=== PATIENT | male | born 1965 | race Caucasian/White ===

== ENCOUNTER 2018-11-12 18:13 | Inpatient (IN) | payer MEDICARE, OTHER ==
[~2018-11-12] VITALS: Ht 170.2 cm; Wt 65.8 kg
[2018-11-12] MEDS ORDERED: HYDROCODONE/ACETAMINOPHEN 5/325MG TABLET PO ONE (18:45)
[2018-11-12 19:12] LABS: HEMATOCRIT. 30.6 % (42.0-52.0); HEMOGLOBIN. 10.2 g/dL (14.0-18.0); MEAN CORPUSCULAR HEMOGLOBIN 31.5 pg (28.0-32.0); MEAN CORPUSCULAR VOLUME 94.7 fL (80.0-94.0); MEAN PLATELET VOLUME 10.2 fl (7.4-10.4); PLATELET 212 x1000/uL (130-400); RED BLOOD CELL COUNT 3.24 mill/uL (4.7-6.1); RED CELL DISTRIBUTION WIDTH 15.1 % (11.6-14.6)
[2018-11-12 19:19] LABS: INR 1.2; PROTHROMBIN TIME 11.9 sec (9.6-11.0)
[2018-11-12 19:37] LABS: PLATELET ESTIMATE NORMAL
[2018-11-12] MEDS ORDERED: VANCOMYCIN 1 G PREMIX 200 ML IV ONE (19:45)
[2018-11-12] MEDS ORDERED: SODIUM CHLORIDE 0.9% 500 ML IV ONE (19:45)
[2018-11-12] MEDS ORDERED: PIPERACILLIN/TAZ 3.375G PREMIX 50 ML IV ONE (19:45)
[2018-11-12 19:47] LABS: CHLORIDE 93 mEq/L (98-107)
[2018-11-12] MEDS ORDERED: ASPIRIN 325MG TABLET PO ONE (20:15)
[2018-11-12] MEDS ORDERED: ENOXAPARIN 80MG/0.8ML SYR SUBCUT ONE (20:15)
[2018-11-12] MEDS ORDERED: DEXTROSE 50% WATER 50ML SYRINGE IV ONE (20:30)
[2018-11-12] MEDS ORDERED: CALCIUM GLUCONATE 1,000 MG in DEXT 5% WATER 100 ML IV ONE (20:30)
[2018-11-12] MEDS ORDERED: INSULIN REGULAR (HUMULIN R) 300UNITS/3ML IV ONE (20:30)
[2018-11-12] MEDS ORDERED: ONDANSETRON HCL 4MG/2ML INJ IV PRN (22:00)
[2018-11-12] MEDS ORDERED: LORAZEPAM 2MG/ML CPJ IV PRN (22:00)
[2018-11-12] MEDS ORDERED: IPRATROPIUM/ALBUTEROL 0.5-3(2.5)MG/3ML NEB INH PRN (22:00)
[2018-11-13] MEDS ORDERED: INSULIN REGULAR (HUMULIN R) 300UNITS/3ML IV SCH ×2 (03:00→03:45)
[2018-11-13] MEDS ORDERED: DEXTROSE 50% WATER 50ML SYRINGE IV SCH (03:00)
[2018-11-13] MEDS ORDERED: CALCIUM GLUCONATE 1,000 MG in DEXT 5% WATER 100 ML IV SCH (03:00)
[2018-11-13] MEDS ORDERED: CEFTRIAXONE 1 G PREMIX 50 ML IV SCH ×2 (03:00→06:00)
[2018-11-13] MEDS ORDERED: AZITHROMYCIN 500 MG in DEXT 5% WATER 250 ML IV SCH (04:00)
[2018-11-13 04:45] VITALS: BP 120/68
[2018-11-13] MEDS: HYDROCODONE/ACETAMINOPHEN 5/325MG TABLET PO PRN (06:02)
[2018-11-13 06:34] VITALS: BP 120/68
[2018-11-13 08:57] VITALS: BP 105/50
[2018-11-13] MEDS: ENOXAPARIN 30MG/0.3ML SYR SUBCUT SCH (08:58)
[2018-11-13] MEDS: ASPIRIN 81MG EC TABLET PO SCH (08:58)
[2018-11-13] MEDS: LISINOPRIL 10MG TABLET PO SCH (08:59)
[2018-11-13] MEDS ORDERED: DEXTROSE 50% WATER 50ML SYRINGE IV PRN (11:45)
[2018-11-13] MEDS: CLONIDINE 0.1MG TABLET PO PRN (11:48)
[2018-11-13] MEDS: INSULIN LISPRO 100 UNITS/ML SUBCUT SCH ×3 (12:33→21:00)
[2018-11-13] MEDS: BLOOD SUGAR DIAGNOSTIC STRIP TEST SCH ×3 (12:35→21:40)
[2018-11-13 12:36] VITALS: BP 182/84
[2018-11-13] MEDS ORDERED: DIATR MEGLU/DIATRIZOATE SOLN 30ML PO SCH (15:00)
[2018-11-13 16:06] VITALS: BP 102/51
[2018-11-13] MEDS ORDERED: CEFTAZIDIME PENTAHYDRATE 2 G in DEXT 5% WATER 100 ML IV SCH (17:30)
[2018-11-13] MEDS: CEFTAZIDIME PENTAHYDRATE 1 G in DEXTROSE 5% WATER 50 ML IV SCH (17:45)
[2018-11-13 20:00] VITALS: BP 121/55
[2018-11-14] VITALS (7 sets, daily range): BP systolic 90–190; BP diastolic 47–105
[2018-11-14] MEDS ORDERED: AZITHROMYCIN 500 MG in DEXT 5% WATER 250 ML IV SCH (03:00)
[2018-11-14 06:01] LABS: HEMATOCRIT. 29.5 % (42.0-52.0); MEAN CORPUSCULAR HEMOGLOBIN 32.6 pg (28.0-32.0); MEAN CORPUSCULAR VOLUME 95.8 fL (80.0-94.0); MEAN PLATELET VOLUME 9.8 fl (7.4-10.4); PLATELET 196 x1000/uL (130-400); RED BLOOD CELL COUNT 3.08 mill/uL (4.7-6.1); RED CELL DISTRIBUTION WIDTH 14.9 % (11.6-14.6)
[2018-11-14] MEDS: BLOOD SUGAR DIAGNOSTIC STRIP TEST SCH ×4 (06:47→21:20)
[2018-11-14] MEDS: INSULIN LISPRO 100 UNITS/ML SUBCUT SCH ×4 (07:25→21:00)
[2018-11-14] MEDS ORDERED: MAGNESIUM/ALUMINUM HYDROXIDE/SIMETHICONE 30ML UDC PO PRN (11:45)
[2018-11-14] MEDS ORDERED: DIPHENHYDRAMINE 50MG/ML VIAL IV PRN (11:45)
[2018-11-14] MEDS ORDERED: GUAIFENESIN 200MG/10ML SUGAR FREE UDC PO PRN (11:45)
[2018-11-14] MEDS: CLONIDINE 0.1MG TABLET PO PRN (12:08)
[2018-11-14] MEDS: LISINOPRIL 10MG TABLET PO SCH (12:08)
[2018-11-14] MEDS: ASPIRIN 81MG EC TABLET PO SCH (12:08)
[2018-11-14] MEDS: ENOXAPARIN 30MG/0.3ML SYR SUBCUT SCH (12:10)
[2018-11-14 12:30] LABS: CHLORIDE 96 mEq/L (98-107)
[2018-11-14 12:32] LABS: HEMATOCRIT. 30.5 % (42.0-52.0); HEMOGLOBIN. 10.2 g/dL (14.0-18.0); MEAN CORPUSCULAR HEMOGLOBIN 31.8 pg (28.0-32.0); MEAN CORPUSCULAR VOLUME 95.4 fL (80.0-94.0); MEAN PLATELET VOLUME 9.6 fl (7.4-10.4); PLATELET 243 x1000/uL (130-400); RED CELL DISTRIBUTION WIDTH 14.9 % (11.6-14.6)
[2018-11-14 13:07] LABS: TOTAL IRON BINDING CAPACITY 228 ug/dL (250-450)
[2018-11-14 13:38] LABS: CREATINE KINASE 103 IU/L (39-308)
[2018-11-14] MEDS: LOSARTAN POTASSIUM 50 MG TABLET PO SCH (13:48)
[2018-11-14] MEDS: HYDRALAZINE HCL 50MG TABLET PO SCH ×2 (13:48→21:21)
[2018-11-14] MEDS: CARVEDILOL 6.25 MG TABLET PO SCH ×2 (13:49→23:00)
[2018-11-14 16:52] LABS: PLATELET ESTIMATE NORMAL
[2018-11-14 16:59] LABS: PLATELET ESTIMATE NORMAL
[2018-11-14] MEDS: CEFTAZIDIME PENTAHYDRATE 1 G in DEXTROSE 5% WATER 50 ML IV SCH (17:55)
[2018-11-14] MEDS: FAMOTIDINE 20MG TABLET PO SCH (21:20)
[2018-11-15] VITALS: BP 107/46
[2018-11-15 04:00] VITALS: BP 134/49
[2018-11-15] MEDS: BLOOD SUGAR DIAGNOSTIC STRIP TEST SCH ×4 (06:43→21:54)
[2018-11-15] MEDS: HYDRALAZINE HCL 50MG TABLET PO SCH ×3 (06:43→21:53)
[2018-11-15 06:54] LABS: BASOPHILS % 1.5 % (0.0-2.0); HEMOGLOBIN. 9.3 g/dL (14.0-18.0); LYMPHOCYTES % 14.6 % (20.0-50.0); MEAN CORPUSCULAR HEMOGLOBIN 31.9 pg (28.0-32.0); MEAN PLATELET VOLUME 9.9 fl (7.4-10.4); MONOCYTES % 9.8 % (2.0-8.0); NEUTROPHILS % 72.1 % (40.0-76.0); PLATELET 209 x1000/uL (130-400); RED BLOOD CELL COUNT 2.92 mill/uL (4.7-6.1); RED CELL DISTRIBUTION WIDTH 15.1 % (11.6-14.6)
[2018-11-15] MEDS: INSULIN LISPRO 100 UNITS/ML SUBCUT SCH ×4 (07:50→21:00)
[2018-11-15 07:53] VITALS: BP_SYST 100; BP_SYST 130; BP_DIAS 52
[2018-11-15] MEDS: ENOXAPARIN 30MG/0.3ML SYR SUBCUT SCH (09:00)
[2018-11-15] MEDS: LISINOPRIL 10MG TABLET PO SCH (09:00)
[2018-11-15] MEDS: CARVEDILOL 6.25 MG TABLET PO SCH ×2 (09:00→21:53)
[2018-11-15] MEDS: LOSARTAN POTASSIUM 50 MG TABLET PO SCH (09:00)
[2018-11-15] MEDS: ASPIRIN 81MG EC TABLET PO SCH (09:00)
[2018-11-15 12:00] VITALS: BP 107/58
[2018-11-15 15:50] VITALS: BP 105/59
[2018-11-15] MEDS: CEFTAZIDIME PENTAHYDRATE 1 G in DEXTROSE 5% WATER 50 ML IV SCH (18:32)
[2018-11-15 20:00] VITALS: BP 146/69
[2018-11-15] MEDS: FAMOTIDINE 20MG TABLET PO SCH (21:53)
[2018-11-16] VITALS: BP 110/55
[2018-11-16 04:00] VITALS: BP 108/47
[2018-11-16] MEDS: HYDRALAZINE HCL 50MG TABLET PO SCH ×3 (05:33→22:01)
[2018-11-16] MEDS: BLOOD SUGAR DIAGNOSTIC STRIP TEST SCH ×4 (06:28→21:00)
[2018-11-16] MEDS: INSULIN LISPRO 100 UNITS/ML SUBCUT SCH ×4 (06:30→21:00)
[2018-11-16 06:57] LABS: BASOPHILS % 1.6 % (0.0-2.0); EOSINOPHILS % 2.4 % (0.0-5.0); HEMATOCRIT. 26.6 % (42.0-52.0); HEMOGLOBIN. 9.1 g/dL (14.0-18.0); LYMPHOCYTES % 14.9 % (20.0-50.0); MEAN CORPUSCULAR HEMOGLOBIN 32.4 pg (28.0-32.0); MEAN CORPUSCULAR VOLUME 94.8 fL (80.0-94.0); MEAN PLATELET VOLUME 9.9 fl (7.4-10.4); MONOCYTES % 10.4 % (2.0-8.0); NEUTROPHILS % 70.7 % (40.0-76.0); PLATELET 209 x1000/uL (130-400); RED BLOOD CELL COUNT 2.81 mill/uL (4.7-6.1); RED CELL DISTRIBUTION WIDTH 14.7 % (11.6-14.6)
[2018-11-16 08:00] VITALS: BP 128/63
[2018-11-16] MEDS: CARVEDILOL 6.25 MG TABLET PO SCH ×2 (08:35→22:01)
[2018-11-16] MEDS: ENOXAPARIN 30MG/0.3ML SYR SUBCUT SCH (08:36)
[2018-11-16] MEDS: LISINOPRIL 10MG TABLET PO SCH (08:36)
[2018-11-16] MEDS: ASPIRIN 81MG EC TABLET PO SCH (08:36)
[2018-11-16] MEDS: LOSARTAN POTASSIUM 50 MG TABLET PO SCH (08:36)
[2018-11-16 12:00] VITALS: BP 108/52
[2018-11-16] MEDS: CEFTAZIDIME PENTAHYDRATE 1 G in DEXTROSE 5% WATER 50 ML IV SCH (18:56)
[2018-11-16 20:09] VITALS: BP 150/55
[2018-11-16] MEDS: FAMOTIDINE 20MG TABLET PO SCH (22:00)
[2018-11-17] VITALS (7 sets, daily range): BP systolic 121–162; BP diastolic 55–77
[2018-11-17] MEDS: HYDRALAZINE HCL 50MG TABLET PO SCH ×3 (06:31→22:00)
[2018-11-17] MEDS: BLOOD SUGAR DIAGNOSTIC STRIP TEST SCH ×4 (06:31→21:04)
[2018-11-17] MEDS: INSULIN LISPRO 100 UNITS/ML SUBCUT SCH ×4 (07:50→21:00)
[2018-11-17] MEDS: CARVEDILOL 6.25 MG TABLET PO SCH ×2 (09:00→21:00)
[2018-11-17] MEDS: ENOXAPARIN 30MG/0.3ML SYR SUBCUT SCH (09:00)
[2018-11-17] MEDS: LISINOPRIL 10MG TABLET PO SCH (09:00)
[2018-11-17] MEDS: LOSARTAN POTASSIUM 50 MG TABLET PO SCH (09:00)
[2018-11-17] MEDS ORDERED: LIDOCAINE HCL 1% 20ML VIAL (Pyxis) INJ ONE (10:09)
[2018-11-17] MEDS ORDERED: DIATR MEGLU/DIATRIZOATE SOLN 30ML ONE (10:25)
[2018-11-17] MEDS ORDERED: IOHEXOL-350 100 ML BOTTLE ONE (10:26)
[2018-11-17] MEDS: ASPIRIN 81MG EC TABLET PO SCH (12:08)
[2018-11-17 12:42] LABS: BASOPHILS % 2.4 % (0.0-2.0); EOSINOPHILS % 2.5 % (0.0-5.0); HEMATOCRIT. 30.6 % (42.0-52.0); HEMOGLOBIN. 10.1 g/dL (14.0-18.0); LYMPHOCYTES % 13.1 % (20.0-50.0); MEAN CORPUSCULAR HEMOGLOBIN 31.7 pg (28.0-32.0); MEAN CORPUSCULAR VOLUME 96.2 fL (80.0-94.0); MEAN PLATELET VOLUME 9.8 fl (7.4-10.4); PLATELET 235 x1000/uL (130-400); RED BLOOD CELL COUNT 3.18 mill/uL (4.7-6.1); RED CELL DISTRIBUTION WIDTH 15.4 % (11.6-14.6)
[2018-11-17] MEDS ORDERED: HEPARIN SODIUM 1,000 UNIT/1ML VIAL IV ONE (13:00)
[2018-11-17] MEDS ORDERED: HEPARIN SODIUM 1,000 UNIT/1ML VIAL IV NR (13:15)
[2018-11-17] MEDS: FAMOTIDINE 20MG TABLET PO SCH (21:04)
[2018-11-17] MEDS: HYDROCODONE/ACETAMINOPHEN 5/325MG TABLET PO PRN (21:06)
[2018-11-17] MEDS: CEFTAZIDIME PENTAHYDRATE 1 G in DEXTROSE 5% WATER 50 ML IV SCH (23:11)
[2018-11-18 00:30] VITALS: BP 179/63
[2018-11-18] MEDS: CLONIDINE 0.1MG TABLET PO PRN (01:10)
[2018-11-18 04:00] VITALS: BP 142/78
[2018-11-18] MEDS: HYDRALAZINE HCL 50MG TABLET PO SCH ×3 (05:18→23:53)
[2018-11-18 06:45] LABS: EOSINOPHILS % 4.6 % (0.0-5.0); HEMATOCRIT. 29.2 % (42.0-52.0); HEMOGLOBIN. 9.7 g/dL (14.0-18.0); LYMPHOCYTES % 16.9 % (20.0-50.0); MEAN CORPUSCULAR HEMOGLOBIN 31.6 pg (28.0-32.0); MEAN CORPUSCULAR VOLUME 95.1 fL (80.0-94.0); MEAN PLATELET VOLUME 9.6 fl (7.4-10.4); MONOCYTES % 10.9 % (2.0-8.0); NEUTROPHILS % 65.6 % (40.0-76.0); PLATELET 245 x1000/uL (130-400); RED BLOOD CELL COUNT 3.07 mill/uL (4.7-6.1); RED CELL DISTRIBUTION WIDTH 15.2 % (11.6-14.6)
[2018-11-18] MEDS: BLOOD SUGAR DIAGNOSTIC STRIP TEST SCH ×4 (07:20→21:00)
[2018-11-18] MEDS: INSULIN LISPRO 100 UNITS/ML SUBCUT SCH ×4 (07:30→22:00)
[2018-11-18 08:00] VITALS: BP 153/55
[2018-11-18] MEDS: ENOXAPARIN 30MG/0.3ML SYR SUBCUT SCH (09:00)
[2018-11-18] MEDS: LISINOPRIL 10MG TABLET PO SCH (09:27)
[2018-11-18] MEDS: LOSARTAN POTASSIUM 50 MG TABLET PO SCH (09:27)
[2018-11-18] MEDS: CARVEDILOL 6.25 MG TABLET PO SCH ×2 (09:27→21:58)
[2018-11-18] MEDS: ASPIRIN 81MG EC TABLET PO SCH (09:27)
[2018-11-18 12:00] VITALS: BP 119/45
[2018-11-18 16:00] VITALS: BP 133/46
[2018-11-18 20:26] VITALS: BP 149/43
[2018-11-18] MEDS: CEFTAZIDIME PENTAHYDRATE 1 G in DEXTROSE 5% WATER 50 ML IV SCH (21:56)
[2018-11-19] VITALS: BP 124/61
[2018-11-19 04:51] VITALS: BP 145/57
[2018-11-19 06:49] LABS: BASOPHILS % 1.9 % (0.0-2.0); EOSINOPHILS % 3.5 % (0.0-5.0); HEMATOCRIT. 30.8 % (42.0-52.0); HEMOGLOBIN. 10.2 g/dL (14.0-18.0); LYMPHOCYTES % 12.7 % (20.0-50.0); MEAN CORPUSCULAR HEMOGLOBIN 31.8 pg (28.0-32.0); MEAN CORPUSCULAR VOLUME 95.8 fL (80.0-94.0); MEAN PLATELET VOLUME 9.3 fl (7.4-10.4); MONOCYTES % 12.6 % (2.0-8.0); NEUTROPHILS % 69.3 % (40.0-76.0); PLATELET 246 x1000/uL (130-400); RED BLOOD CELL COUNT 3.22 mill/uL (4.7-6.1); RED CELL DISTRIBUTION WIDTH 15.5 % (11.6-14.6)
[2018-11-19] MEDS: BLOOD SUGAR DIAGNOSTIC STRIP TEST SCH ×3 (07:20→12:30)
[2018-11-19] MEDS: INSULIN LISPRO 100 UNITS/ML SUBCUT SCH ×2 (07:50→13:03)
[2018-11-19 08:00] VITALS: BP 138/71
[2018-11-19] MEDS: ENOXAPARIN 30MG/0.3ML SYR SUBCUT SCH ×2 (09:00→09:35)
[2018-11-19] MEDS: ASPIRIN 81MG EC TABLET PO SCH (09:34)
[2018-11-19] MEDS: CARVEDILOL 6.25 MG TABLET PO SCH (10:22)
[2018-11-19] MEDS: LISINOPRIL 10MG TABLET PO SCH (10:22)
[2018-11-19] MEDS: LOSARTAN POTASSIUM 50 MG TABLET PO SCH (10:22)
[2018-11-19 12:00] VITALS: BP 146/49
[2018-11-19 16:03] VITALS: BP 148/58
== END 2018-11-19 16:45 | disposition left against medical advice (07) | DRG 280 ==
LOC: ER 18:13 → 6WST 21:46 → EDBEDREQ 21:48 → EDBEDREQTM 21:48 → SUPCPDRO 21:51 → EDBEDREQSVC 22:41 → ENRESERV 11-13 03:15
PROVIDERS: ADMIT Internal Medicine Nephrology; ATTEND Internal Medicine Nephrology
PROC: 5A1D70Z Performance of Urinary Filtration, Intermittent, Less than 6 Hours Per Day (ICD-10-PCS; 2018-11-13)
PROC: 02PYX3Z Removal of Infusion Device from Great Vessel, External Approach (ICD-10-PCS; principal; 2018-11-15)
PROC: 02HV33Z Insertion of Infusion Device into Superior Vena Cava, Percutaneous Approach (ICD-10-PCS; 2018-11-17)
PROC: B5181ZA Fluoroscopy of Superior Vena Cava using Low Osmolar Contrast, Guidance (ICD-10-PCS; 2018-11-17)
PROC: B548ZZA Ultrasonography of Superior Vena Cava, Guidance (ICD-10-PCS; 2018-11-17)
PROC: B5131ZZ Fluoroscopy of Right Jugular Veins using Low Osmolar Contrast (ICD-10-PCS; 2018-11-17)
DX: T80.211A Bloodstream infection due to central venous catheter, initial encounter (principal); A41.50 Gram-negative sepsis, unspecified; I21.4 Non-ST elevation (NSTEMI) myocardial infarction; J96.00 Acute respiratory failure, unspecified whether with hypoxia or hypercapnia; N18.6 End stage renal disease; J18.1 Lobar pneumonia, unspecified organism; A41.53 Sepsis due to Serratia; E87.1 Hypo-osmolality and hyponatremia; E87.2 Acidosis; E44.1 Mild protein-calorie malnutrition; I13.2 Hypertensive heart and chronic kidney disease with heart failure and with stage 5 chronic kidney disease, or end stage renal disease; I50.22 Chronic systolic (congestive) heart failure; M94.0 Chondrocostal junction syndrome [Tietze]; D63.8 Anemia in other chronic diseases classified elsewhere; I25.5 Ischemic cardiomyopathy; I27.20 Pulmonary hypertension, unspecified; K80.20 Calculus of gallbladder without cholecystitis without obstruction; E11.22 Type 2 diabetes mellitus with diabetic chronic kidney disease; E11.51 Type 2 diabetes mellitus with diabetic peripheral angiopathy without gangrene; E78.00 Pure hypercholesterolemia, unspecified; E78.5 Hyperlipidemia, unspecified; I25.10 Atherosclerotic heart disease of native coronary artery without angina pectoris; N40.0 Benign prostatic hyperplasia without lower urinary tract symptoms; Y84.8 Other medical procedures as the cause of abnormal reaction of the patient, or of later complication, without mention of misadventure at the time of the procedure; I08.1 Rheumatic disorders of both mitral and tricuspid valves; R74.0 Nonspecific elevation of levels of transaminase and lactic acid dehydrogenase [LDH]; Z89.201 Acquired absence of right upper limb, unspecified level; Z95.1 Presence of aortocoronary bypass graft; Z99.2 Dependence on renal dialysis; Z82.49 Family history of ischemic heart disease and other diseases of the circulatory system
CPT/HCPCS: 36415; 36569; 36589; 71045; 74176; 76700; 77001; 80048; 80051; 80061; 80076; 82550; 82962; 83036; 83540; 83550; 83605; 83735; 83880; 84153; 84484; 87070; 87077; 87186; 87804; 93005; 93306; 96374; 97162; 97166; 99285; C1752; C1769; C1893; J0456; J0610; J0696; J0713; J1644; J1650; J1815; J2060; J2543; J3370; J3490; J7040; J7050; J7060; Q9963; Q9967; G0103

== ENCOUNTER 2018-11-20 20:52 | Emergency (ER) | payer MEDICARE, OTHER ==
[~2018-11-20] VITALS: Ht 170.2 cm; Wt 61.0 kg
[2018-11-20 22:43] VITALS: BP 185/88
== END 2018-11-20 22:45 | disposition home or self-care (01) ==
LOC: ER 20:52
DX: T82.838A Hemorrhage due to vascular prosthetic devices, implants and grafts, initial encounter (principal); I10 Essential (primary) hypertension; I12.0 Hypertensive chronic kidney disease with stage 5 chronic kidney disease or end stage renal disease; E11.22 Type 2 diabetes mellitus with diabetic chronic kidney disease; N18.6 End stage renal disease; X58.XXXA Exposure to other specified factors, initial encounter; Z99.2 Dependence on renal dialysis; Z95.1 Presence of aortocoronary bypass graft
CPT/HCPCS: 99283

== ENCOUNTER 2019-08-20 05:36 | Inpatient (IN) | payer MEDICARE, OTHER ==
[~2019-08-20] VITALS: Ht 170.2 cm; Wt 61.7 kg
[2019-08-20 08:26] LABS: BASOPHILS % 2.3 % (0.0-2.0); EOSINOPHILS % 4.4 % (0.0-5.0); HEMATOCRIT. 35.8 % (42.0-52.0); HEMOGLOBIN. 12.1 g/dL (14.0-18.0); LYMPHOCYTES % 11.4 % (20.0-50.0); MEAN CORPUSCULAR VOLUME 94.5 fL (80.0-94.0); MEAN PLATELET VOLUME 9.8 fl (7.4-10.4); MONOCYTES % 6.7 % (2.0-8.0); NEUTROPHILS % 75.2 % (40.0-76.0); PLATELET 157 x1000/uL (130-400); RED BLOOD CELL COUNT 3.78 mill/uL (4.7-6.1); RED CELL DISTRIBUTION WIDTH 16.2 % (11.6-14.6)
[2019-08-20 08:34] LABS: CHLORIDE 99 mEq/L (98-107)
[2019-08-20] MEDS ORDERED: SODIUM CHLORIDE 0.9% 500 ML IV ONE (08:53)
[2019-08-20] MEDS ORDERED: INSULIN REGULAR (HUMULIN R) 300UNITS/3ML IV ONE (09:00)
[2019-08-20] MEDS ORDERED: DEXTROSE 50% WATER 50ML SYRINGE IV ONE (09:00)
[2019-08-20] MEDS ORDERED: SODIUM BICARBONATE 8.4% 1 MEQ/ML 50ML SYR IV ONE (09:00)
[2019-08-20] MEDS: ALBUTEROL (0.083%) 2.5MG/3ML NEB HHN ONE ×2 (10:38→10:58)
[2019-08-20] MEDS ORDERED: ONDANSETRON HCL 4MG/2ML INJ IV PRN ×2 (13:15→23:30)
[2019-08-20] MEDS ORDERED: ACETAMINOPHEN 325MG TABLET PO PRN ×2 (13:15→23:30)
[2019-08-20] MEDS ORDERED: HYDRALAZINE HCL 50MG TABLET PO NR (17:53)
[2019-08-20] MEDS ORDERED: HEPARIN 5000 UNITS/ML VIAL SUBCUT SCH (21:00)
[2019-08-20] MEDS ORDERED: LORAZEPAM 2MG/ML CPJ IV PRN (23:30)
[2019-08-20] MEDS ORDERED: MORPHINE SULFATE 2 MG/ML CPJ (NOT FOR IM USE) IV PRN (23:30)
[2019-08-20] MEDS ORDERED: IPRATROPIUM/ALBUTEROL 0.5-3(2.5)MG/3ML NEB NEB PRN (23:30)
[2019-08-20] MEDS ORDERED: HYDROCODONE/ACETAMINOPHEN 5/325MG TABLET PO PRN (23:30)
[2019-08-20] MEDS: HYDRALAZINE HCL 50MG TABLET PO SCH (23:57)
[2019-08-20] MEDS: LISINOPRIL 5MG TABLET PO SCH (23:58)
[2019-08-21 00:23] VITALS: BP 164/91
[2019-08-21] MEDS ORDERED: DEXTROSE 50% WATER 50ML SYRINGE IV PRN (02:15)
[2019-08-21] MEDS: HYDRALAZINE HCL 50MG TABLET PO SCH ×3 (05:17→22:30)
[2019-08-21 06:39] LABS: BASOPHILS % 1.2 % (0.0-2.0); EOSINOPHILS % 2.5 % (0.0-5.0); HEMATOCRIT. 33.9 % (42.0-52.0); HEMOGLOBIN. 11.6 g/dL (14.0-18.0); LYMPHOCYTES % 9.9 % (20.0-50.0); MEAN CORPUSCULAR HEMOGLOBIN 32.5 pg (28.0-32.0); MEAN CORPUSCULAR VOLUME 94.6 fL (80.0-94.0); MEAN PLATELET VOLUME 9.9 fl (7.4-10.4); MONOCYTES % 7.9 % (2.0-8.0); NEUTROPHILS % 78.5 % (40.0-76.0); PLATELET 155 x1000/uL (130-400); RED BLOOD CELL COUNT 3.58 mill/uL (4.7-6.1); RED CELL DISTRIBUTION WIDTH 16.1 % (11.6-14.6)
[2019-08-21 07:04] LABS: CHLORIDE 101 mEq/L (98-107)
[2019-08-21] MEDS: BLOOD SUGAR DIAGNOSTIC STRIP TEST SCH ×4 (07:40→21:00)
[2019-08-21 08:00] VITALS: BP 130/59
[2019-08-21] MEDS: INSULIN LISPRO 100 UNITS/ML SUBCUT SCH ×4 (08:09→21:00)
[2019-08-21] MEDS: LISINOPRIL 5MG TABLET PO SCH (09:00)
[2019-08-21] MEDS: ENOXAPARIN 30MG/0.3ML SYR SUBCUT SCH (09:00)
[2019-08-21] MEDS: ASPIRIN 81MG EC TABLET PO SCH (09:23)
[2019-08-21] MEDS ORDERED: ASPI-1497 PO (11:45)
[2019-08-21] MEDS ORDERED: METO25TA6 PO (11:45)
[2019-08-21 12:00] VITALS: BP 160/78
[2019-08-21 14:00] VITALS: BP_SYST 132; BP_SYST 141; BP_SYST 145; BP_DIAS 55; BP_DIAS 58; BP_DIAS 61
[2019-08-21 16:00] VITALS: BP 141/49
[2019-08-21] MEDS: CARVEDILOL 12.5MG TABLET PO SCH (22:29)
[2019-08-22 00:40] VITALS: BP 184/96
[2019-08-22 04:00] VITALS: BP 108/64
[2019-08-22] MEDS: HYDRALAZINE HCL 50MG TABLET PO SCH (05:54)
[2019-08-22] MEDS: BLOOD SUGAR DIAGNOSTIC STRIP TEST SCH (07:40)
[2019-08-22 08:00] VITALS: BP 159/73
[2019-08-22] MEDS: INSULIN LISPRO 100 UNITS/ML SUBCUT SCH (08:10)
[2019-08-22] MEDS: ENOXAPARIN 30MG/0.3ML SYR SUBCUT SCH (09:00)
[2019-08-22] MEDS ORDERED: LISINOPRIL 20MG TABLET PO SCH (09:30)
[2019-08-22] MEDS: CARVEDILOL 12.5MG TABLET PO SCH (10:13)
[2019-08-22] MEDS: ASPIRIN 81MG EC TABLET PO SCH (10:14)
[2019-08-22 12:00] VITALS: BP 131/69
[2019-08-24 08:00] VITALS: BP 113/38
[2019-08-24 12:00] VITALS: BP 106/68
[2019-08-24 16:00] VITALS: BP 119/75
== END 2019-08-22 14:35 | disposition home or self-care (01) | DRG 73 ==
LOC: ER 05:36 → 7WST 08:54 → ENRESERV 22:50
PROVIDERS: ADMIT Internal Medicine Nephrology; ATTEND Internal Medicine Nephrology
DX: G90.8 Other disorders of autonomic nervous system (principal); N18.6 End stage renal disease; I50.23 Acute on chronic systolic (congestive) heart failure; I13.2 Hypertensive heart and chronic kidney disease with heart failure and with stage 5 chronic kidney disease, or end stage renal disease; D63.1 Anemia in chronic kidney disease; E11.22 Type 2 diabetes mellitus with diabetic chronic kidney disease; S09.90XA Unspecified injury of head, initial encounter; W18.39XA Other fall on same level, initial encounter; E87.5 Hyperkalemia; I25.10 Atherosclerotic heart disease of native coronary artery without angina pectoris; Z95.1 Presence of aortocoronary bypass graft; Z99.2 Dependence on renal dialysis; Z89.201 Acquired absence of right upper limb, unspecified level; Y93.89 Activity, other specified; Y92.89 Other specified places as the place of occurrence of the external cause; Y99.8 Other external cause status
CPT/HCPCS: 36415; 71045; 80053; 80061; 82962; 83036; 83735; 83880; 84484; 85025; 93005; 93306; 93880; 94640; 97162; 99291; J1650; J1815; J3490; J7030

== ENCOUNTER 2020-03-12 12:40 | Emergency (ER) | payer MEDICARE, OTHER ==
[~2020-03-12] VITALS: Ht 170.2 cm; Wt 60.0 kg
[~2020-03-12 12:40] MED LIST: ASPI-1497 PO; METO25TA6 PO
[2020-03-12] MEDS ORDERED: ACETAMINOPHEN WITH CODEINE 300/30MG TABLET PO ONE (16:45)
[2020-03-12] MEDS ORDERED: DEXAMETHASONE 4MG TABLET PO ONE (16:45)
[2020-03-12 17:42] VITALS: BP 161/88
== END 2020-03-12 17:44 | disposition home or self-care (01) ==
LOC: ER 12:40
DX: M54.5 Low back pain (principal); I12.0 Hypertensive chronic kidney disease with stage 5 chronic kidney disease or end stage renal disease; E11.22 Type 2 diabetes mellitus with diabetic chronic kidney disease; N18.6 End stage renal disease; Z99.2 Dependence on renal dialysis
CPT/HCPCS: 72100; 99283; J8540

== ENCOUNTER 2020-07-28 11:22 | Emergency (ER) | payer MEDICARE, MEDICAID, OTHER ==
[~2020-07-28] VITALS: Ht 172.7 cm; Wt 70.0 kg
[2020-07-28 12:15] VITALS: BP 150/89
== END 2020-07-28 12:23 | disposition home or self-care (01) ==
LOC: ER 11:22
DX: I12.0 Hypertensive chronic kidney disease with stage 5 chronic kidney disease or end stage renal disease (principal); Z20.822 Contact with and (suspected) exposure to COVID-19; R05 Cough; J02.9 Acute pharyngitis, unspecified; E11.22 Type 2 diabetes mellitus with diabetic chronic kidney disease; N18.6 End stage renal disease; Z99.2 Dependence on renal dialysis; Z98.890 Other specified postprocedural states
CPT/HCPCS: 99283; C9803; U0003